=== PATIENT | male | born 1985 | race African-American/Black ===

== ENCOUNTER 2019-04-28 19:57 | Emergency (ER) | payer SELFPAY ==
--- NOTE | ~2019-04-28 | XR_ITS ---
XR knee RT min 4V 04/28/2019 20:50 INDICATION: Right knee pain PROCEDURE: 4 views right knee COMPARISON: No prior studies for comparison. FINDINGS: Fracture, dislocation or subluxation is not identified. No significant joint effusion. The soft tissues appear within normal limits. No foreign bodies are identified. IMPRESSION: 1: NO ACUTE BONE OR JOINT ABNORMALITY IDENTIFIED. Reviewed, dictated and finalized at location A. F METER READER
--- NOTE | ~2019-04-28 | XR_ITS ---
XR ankle RT min 3V 04/28/2019 20:50 Indication: Right lateral ankle pain Procedure: 4 views right ankle Comparison: No prior studies for comparison. Findings: There are is a healed distal fibular fracture. Ankle mortise intact. No acute fracture or t raumatic malalignment. There is a small ossific density adjacent to the medial malleolus, consistent with age-indeterminate avulsion fracture. Impression: 1: Age-indeterminate avulsion fracture medial malleolus. Correlate for point tenderness. Reviewed, dictated and finalized at location A. R SCHOOL PROGRAM TEACHER Impression: 1: Age-indeterminate avulsion fracture medial malleolus. Correlate for point te nderness.
[2019-04-28 20:00] VITALS: BP 175/121; PULSE 99; RESP 16; TEMP 37.1; O2SAT 96
--- NOTE | 2019-04-28 20:32 | PC.NURSE ---
pt requests to not be placed in gown, states he can pull his pant leg up.
--- NOTE | 2019-04-28 20:42 | ED.EXTPRO ---
HPI - Extremity Problem General Chief complaint: Extremity Problem,Nontraumatic Stated complaint: R knee pain Time Seen by Provider: 04/28/19 20:42 Source: patient Mode of arrival: ambulatory Limitations: no limitations History of Present Illness HPI Narrative: The pt is a 33 y/o male who presents to the ED with c/o intermittent rt ankle pain that began 4 years ago. The pt states that he injured his ankle many years ago and has not seen a doctor about it since right after it happened. He notes that his rt ankle looks different than his lt. His pain is alleviated with rest and aggravated with standing for long periods of time. The pt also report rt knee pain that began 1.5 weeks ago but denies thigh pain or any recent injury. The pt used to live in [place], which is where he saw an ED physician about his ankle 4 years ago, but is now staying here with his brother. He has no medical problems, smokes cigarettes, and rinks occassionally. MD Complaint: other (Ankle pain) Onset (ago): year(s) (4) Pain Consistency: intermittent Associated symptoms: other (rt knee pain) Related Data Allergies Allergy/AdvReac Type Severity Reaction Status Date / Time No Known Allergies Allergy Verified 04/28/19 20:23 Review of Systems Review of Systems: All systems reviewed & are unremarkable except as noted in HPI and below Musculoskeletal: Musculoskeletal: Reports arthralgias (rt knee pain, rt ankle pain) and Denies other (leg pain) PMFSH Past Medical History Medical History (Updated 04/28/19 @ 20:56 by Nurys Willard MD) Healthy adult male Surgical History Surgical History (Updated 04/28/19 @ 20:50 by Barby Donovan) No pertinent past surgical history Social History Social History (Updated 04/28/19 @ 20:50 by Barby Donovan) Smoking status: Current every day smoker Alcohol intake: current Exam Narrative: Exam Narrative: General appearance: Well-developed, well-nourished Skin: Normal color Head: Normocephalic, nontraumatic Eyes: Clear conjunctiva ENT: Oropharynx normal, ears normal, nose normal Neck: Supple, nontender Chest and respiratory: Airway patent, no respiratory distress, no accessory muscle use Heart: Regular rate/rhythm Vascular: Normal peripheral pulses, normal capillary refill. Musculoskeletal: Normal range of motion, nontender back, right ankle showed slight swelling lateral malleolus, no tenderness, no swelling, no deformity, no warmth, no rash Neurologic: Alert and oriented ?3, DIRECTOR FIELD SERVICES is normal as tested, no gross motor deficit Course Course Emergency Course: Unchanged Right ankle x-ray showed indeterminate avulsion fraction of the medial malleolus, on physical exam patient showed no tenderness, deformity or even limitation of range of motion. The x-ray result high likely secondary to old avulsion fracture 4 years ago. Vital Signs Vital signs: Vital Signs Temperature 37.1 C 04/28/19 20:00 Pulse Rate 99 04/28/19 20:00 Respiratory Rate 16 04/28/19 20:00 Blood Pressure 175/121 H 04/28/19 20:00 Pulse Oximetry 96 04/28/19 20:00 Temperature 37.1 C 04/28/19 20:00 Pulse Rate 99 04/28/19 20:00 Respiratory Rate 16 04/28/19 20:00 Blood Pressure 175/121 H 04/28/19 20:00 Pulse Oximetry 96 04/28/19 20:00 MDM - Extremity (Nontraumatic) MDM Narrative Medical decision making narrative: Patient presents with right ankle pain for the last 4 years, intermittent, does not have a shop, visiting his brother from another state for the last 4 weeks. Scheduled to work tomorrow, asking for a work excuse tomorrow. Imaging Data Radiologist's impression: ITS Impressions Knee X-Ray 04/28/19 20:51
== END 2019-04-28 21:32 | disposition home or self-care (01) ==
PROVIDERS: Emergency Provider Emergency Medicine
DX: M25.571 Pain in right ankle and joints of right foot (principal); F17.200 Nicotine dependence, unspecified, uncomplicated
CPT/HCPCS: 73564; 73610; 99284

== ENCOUNTER 2019-06-01 07:38 | Emergency (ER) | payer SELFPAY ==
[2019-06-01] VITALS (7 sets, daily range): BP systolic 145–169; BP diastolic 76–99; PULSE 71–84; RESP 14–22; TEMP 36.5–36.8; O2SAT 97–100
--- NOTE | ~2019-06-01 | XR_ITS ---
EXAMINATION: XR chest 2V DATE: 06/01/2019 08:28 INDICATION: Chest pain and bilateral neck and arm pain. TECHNIQUE: PA and lateral views of the chest were obtained. COMPARISON: None FINDINGS: The lungs are clear with no focal airspace opacities, pulmonary edema, pleural effusion or pneumothor ax. The cardiomediastinal silhouette is normal. Likely chronic posterior right ninth rib fracture. IMPRESSION: 1. No acute cardiopulmonary disease. Reviewed, dictated and finalized at location A. RNAL SALES ENGINEER
--- NOTE | 2019-06-01 07:48 | ECG_ITS ---
Measurements Intervals [place] Rate: 78 P: 51 [place]: 168 QRS: 14 QRSD: 100 T: 48 QT: 395 QTc: 453 Interpretive Statements SINUS RHYTHM NORMAL ECG Electronically Signed On 06-01-2019 8:51:44 LOGGING TRACTOR OPERATOR by Harvinder Bean D.O.
[2019-06-01 08:09] LABS: Basophils Percent Auto 0.4 % (0.2-1.2); Eosinophils Percent Auto 0.6 % (0-4.4); Hematocrit 43.7 % (42.0-52.0); Hemoglobin 14.2 g/dL (14.0-18.0); Immature Granulocyte Absolute 0.02 K/mm3 (0.00-0.031); Immature Granulocyte Percent A 0.3 % (0-0.5); Lymphocytes Absolute Auto 1.72 K/mm3 (0.9-3.2); Lymphocytes Percent Auto 23.7 % (18.3-44.2); Mean Corpuscular HGB Conc 32.5 g/dl (32-36); Mean Corpuscular Hemoglobin 29.2 pg (26-34); Mean Corpuscular Volume 89.9 fl (80-100); Monocytes Absolute Auto 0.8 K/mm3 (0.1-0.6); Monocytes Percent Auto 10.3 % (2.6-8.5); Neutrophils Absolute Auto 4.7 K/mm3 (1.3-6.7); Neutrophils Percent Auto 64.7 % (45.5-73.1); Platelet Count Result 281 k/mm3 (150-375); Red Blood Count 4.86 M/mm3 (4.6-6.20); Red Cell Distribution Width 12.5 % (11.5-14.5); White Blood Count 7.3 K/mm3 (4.5-10.0)
[2019-06-01 08:21] LABS: Prothrombin Time 12.6 Seconds (11.1-14.7)
[2019-06-01 08:22] LABS: Partial Thromboplastin Time 30.3 SECONDS (22.3-36.8)
[2019-06-01 08:24] LABS: Blood Urea Nitrogen 15 mg/dL (9-20); Calcium 8.8 mg/dL (8.4-10.2); Carbon Dioxide 24 mmol/L (22-30); Chloride 102 mmol/L (98-107); Estimated CRCL calculation 180 ml/min; Estimated Glomerular Filt Rate > 60; Glucose 93 mg/dL (75-110); Potassium 3.5 mmol/L (3.4-5.0); Sodium 136 mmol/L (137-145)
[2019-06-01 08:36] LABS: Troponin I < 0.012 ng/mL (0.000-0.034)
--- NOTE | 2019-06-01 08:46 | ED.CHESTPAIN ---
HPI - Chest Pain General Chief Complaint: Chest Pain <Henry Pratt PA-C - Last Filed: 06/01/19 11:42> Stated Complaint: neck pain <Henry Pratt PA-C - Last Filed: 06/01/19 11:42> Time Seen by Provider: 06/01/19 08:03 <RAPHAEL Kwok Last Filed: 06/01/19 11:42> Source: patient <Henry Pratt PA-C - Last Filed: 06/01/19 11:42> Mode of arrival: ambulatory <Henry Pratt PA-C - Last Filed: 06/01/19 11:42> Limitations: no limitations <Henry Pratt PA-C - Last Filed: 06/01/19 11:42> History of Present Illness HPI narrative: Patient is a 33-year-old male who presents to emergency department for evaluation of upper respiratory symptoms that have been present now for the last several days with nonproductive cough patient notes on Friday he had an episode of pain radiating from the head down into the chest patient has persistent chest discomfort since which is midsternal worse with coughing. Patient denies dyspnea shortness of breath lightheadedness dizziness or other complaints and is otherwise resting comfortably in the room upon arrival and does not take anything for his symptoms <Henry Pratt PA-C - Last Filed: 06/01/19 11:42> Related Data Allergies/Adverse Reactions: Allergies Allergy/AdvReac Type Severity Reaction Status Date / Time No Known Allergies Allergy Verified 04/28/19 20:23 <Henry Pratt PA-C - Last Filed: 06/01/19 11:42> Review of Systems Review of Systems: All systems reviewed & are unremarkable except as noted in HPI and below <Henry Pratt PA-C - Last Filed: 06/01/19 11:42> [facility] Past Medical History Medical History: Medical History Healthy adult male <RAPHAEL Kwok Last Filed: 06/01/19 11:42> Surgical History Surgical History: Surgical History No pertinent past surgical history <RAPHAEL Kwok Last Filed: 06/01/19 11:42> Social History Social History: Social History Smoking status: Current every day smoker Alcohol intake: current Gender identity (if verbalized by the patient): Male <Henry Pratt PA-C - Last Filed: 06/01/19 11:42> Exam Narrative: Exam Narrative: GENERAL: Well-appearing, well-nourished, and in no acute distress. HEAD: Normocephalic, atraumatic. EYES: PERRLA and EOMI. ENT: Nares clear, no rhinorrhea or epistaxis. Mucous membranes moist. CHEST: Clear to auscultation. No respiratory distress. No wheezes rales or rhonchi HEART: Regular rate and rhythm. No murmur heard. Normal peripheral pulses. ABDOMEN: Soft, nontender, nondistended EXTREMITIES: Normal range of motion. No edema. SKIN: Warm, dry, no rash. NEURO: No focal deficits. Alert and oriented x3. PSYCH: Normal mood and affect. <Henry Pratt PA-C - Last Filed: 06/01/19 11:42> Course Course Emergency Course: Patient in the room aware of case findings treatment plan and diagnosis agreeing to follow-up as directed or to return if symptoms worsen or concerns <Henry Pratt PA-C - Last Filed: 06/01/19 11:42> Vital Signs Vital signs: Vital Signs Temperature 36.8 C 06/01/19 07:41 Pulse Rate 78 06/01/19 07:41 Respiratory Rate 22 H 06/01/19 07:41 Blood Pressure 168/95 H 06/01/19 07:41 Pulse Oximetry 100 06/01/19 07:41 Temperature 36.5 C 06/01/19 11:30 Pulse Rate 76 06/01/19 11:54 Respiratory Rate 20 06/01/19 11:54 Blood Pressure 145/76 H 06/01/19 11:54 Pulse Oximetry 100 06/01/19 11:54 <Henry Pratt PA-C - Last Filed: 06/01/19 11:42> Vital Signs Temperature 36.8 C 06/01/19 07:41 Pulse Rate 78 06/01/19 07:41 Respiratory Rate 22 H 06/01/19 07:41 Blood Pressure 168/95 H 06/01/19 07:41 Pulse Oximetry 100 06/01/19 07:41 Temperatur
[2019-06-01 11:36] LABS: Troponin I < 0.012 ng/mL (0.000-0.034)
== END 2019-06-01 11:56 | disposition home or self-care (01) ==
PROVIDERS: Emergency Provider Emergency Medicine
DX: R07.9 Chest pain, unspecified (principal)
CPT/HCPCS: 36415; 71046; 80048; 84484; 85025; 85610; 85730; 93005; 99284

== ENCOUNTER 2019-09-21 04:30 | Emergency (ER) | payer SELFPAY ==
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
--- NOTE | ~2019-09-21 | XR_ITS ---
EXAMINATION: XR chest 1V portable DATE: 09/21/2019 05:08 INDICATION: Generalized chest pain TECHNIQUE: frontal view of the chest was obtained. COMPARISON: Chest radiograph dated 06/01/19 FINDINGS: The lungs remain clear with no focal airspace opacities, pulmonary edema, pleural effusion or pneumot horax. The cardiomediastinal silhouette is normal. Visualized bones and soft tissues are unremarkable . IMPRESSION: 1. No acute cardiopulmonary disease. Reviewed, dictated and finalized at location A.
[2019-09-21 04:45] VITALS: BP 124/80; PULSE 72; RESP 16; TEMP 36.8; O2SAT 96
[2019-09-21 05:00] LABS: Basophils Percent Auto 0.3 % (0.2-1.2); Hematocrit 41.7 % (42.0-52.0); Hemoglobin 13.5 g/dL (14.0-18.0); Immature Granulocyte Absolute 0.04 K/mm3 (0.00-0.031); Immature Granulocyte Percent A 0.6 % (0-0.5); Lymphocytes Percent Auto 18.2 % (18.3-44.2); Mean Corpuscular HGB Conc 32.4 g/dl (32-36); Mean Corpuscular Hemoglobin 29.5 pg (26-34); Mean Platelet Volume 8.9 fl (7.4-10.4); Monocytes Absolute Auto 0.5 K/mm3 (0.1-0.6); Monocytes Percent Auto 7.1 % (2.6-8.5); Neutrophils Absolute Auto 5.3 K/mm3 (1.3-6.7); Neutrophils Percent Auto 73.8 % (45.5-73.1); Platelet Count Result 302 k/mm3 (150-375); Red Blood Count 4.58 M/mm3 (4.6-6.20); Red Cell Distribution Width 13.4 % (11.5-14.5); White Blood Count 7.2 K/mm3 (4.5-10.0)
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
[2019-09-21 05:13] LABS: Blood Urea Nitrogen 16 mg/dL (9-20); Calcium 8.6 mg/dL (8.4-10.2); Carbon Dioxide 21 mmol/L (22-30); Chloride 111 mmol/L (98-107); Estimated CRCL calculation 112 ml/min; Estimated Glomerular Filt Rate > 60; Ethanol 151 mg/dL (<10); Glucose 132 mg/dL (75-110); Potassium 3.8 mmol/L (3.4-5.0); Sodium 142 mmol/L (137-145)
--- NOTE | 2019-09-21 05:15 | ECG_ITS ---
Measurements Intervals [place] Rate: 116 P: 65 TN: 174 QRS: 21 QRSD: 93 T: 59 QT: 331 QTc: 460 Interpretive Statements SINUS TACHYCARDIA ABNORMAL ECG Electronically Signed On 09-21-2019 6:54:53 CDT by Harvinder Bean D.O.
[2019-09-21 05:25] LABS: Troponin I 0.013 ng/mL (0.000-0.034)
[2019-09-21 06:54] VITALS: BP 145/89; PULSE 86; RESP 16; TEMP 36.9; O2SAT 98
== END 2019-09-21 06:54 | disposition home or self-care (01) ==
PROVIDERS: Emergency Provider Emergency Medicine
DX: R07.89 Other chest pain (principal); F10.129 Alcohol abuse with intoxication, unspecified; Y90.6 Blood alcohol level of 120-199 mg/100 ml; R00.0 Tachycardia, unspecified; F17.210 Nicotine dependence, cigarettes, uncomplicated
CPT/HCPCS: 36415; 70450; 71045; 80048; 80307; 84484; 85025; 93005; 99284

== ENCOUNTER 2019-12-19 20:19 | Emergency (ER) | payer SELFPAY ==
[2019-12-19 20:22] VITALS: BP 171/114; PULSE 97; RESP 16; TEMP 36.2; O2SAT 100
[2019-12-19 20:55] VITALS: BP 164/109; PULSE 90
[2019-12-19 20:57] VITALS: BP 165/122; PULSE 102
[2019-12-19 20:59] VITALS: BP 171/126; PULSE 108
[2019-12-19 21:06] LABS: Basophils Percent Auto 0.4 % (0.2-1.2); Eosinophils Percent Auto 0.3 % (0-4.4); Hematocrit 45.7 % (42.0-52.0); Hemoglobin 15.3 g/dL (14.0-18.0); Immature Granulocyte Absolute 0.02 K/mm3 (0.00-0.031); Immature Granulocyte Percent A 0.3 % (0-0.5); Lymphocytes Absolute Auto 1.92 K/mm3 (0.9-3.2); Lymphocytes Percent Auto 26.9 % (18.3-44.2); Mean Corpuscular HGB Conc 33.5 g/dl (32-36); Mean Corpuscular Volume 92.5 fl (80-100); Mean Platelet Volume 9.3 fl (7.4-10.4); Monocytes Absolute Auto 0.8 K/mm3 (0.1-0.6); Monocytes Percent Auto 10.8 % (2.6-8.5); Neutrophils Absolute Auto 4.4 K/mm3 (1.3-6.7); Neutrophils Percent Auto 61.3 % (45.5-73.1); Platelet Count Result 360 k/mm3 (150-375); Red Blood Count 4.94 M/mm3 (4.6-6.20); Red Cell Distribution Width 11.9 % (11.5-14.5); White Blood Count 7.1 K/mm3 (4.5-10.0)
[2019-12-19 21:09] LABS: Add Urine Microscopic? YES; Appearance Urine Clear (Clear); Bilirubin Urine Negative (Negative); Blood Urine Negative (Negative); Color Urine Yellow (Yellow); Glucose Urine UA Negative (Negative); Ketones Urine Negative (Negative); Leukocyte Esterase Ur Negative LEU/UL (Negative); Mucus Urine Rare /lpf; Nitrate Urine Negative (Negative); Protein Urine Negative (Negative); RBC Urine 0-2 /hpf (0-2); Specific Grav Ur 1.013 (1.001-1.035); Squamous Epithelial Cell Urine Rare /hpf (Few); WBC Urine 0-3 /hpf
--- NOTE | 2019-12-19 21:12 | ED.NAVMDI ---
HPI - Nausea/Vomiting/Diarrhea General Chief complaint: Nausea/Vomiting/Diarrhea Stated complaint: diarrhea Time Seen by Provider: 12/19/19 20:44 Source: patient Mode of arrival: ambulatory Limitations: no limitations History of Present Illness HPI Narrative: This patient is a 34 year old male who presents for evaluation of diarrhea. He states he started having diarrhea on . He describes his stool as loose and brown, and he denies bloody diarrhea. He states on he felt weak but that resolved. He has continued to have some diarrhea , and he states his stools are starting to be more solid. He was unable to find a ride on , so he came today to get evaluated. HE denies associated nausea, vomiting, fever, or abdominal pain. He denies sore throat, cough runny nose, headache or dizziness. He also denies previous antibiotic use. MD elicited complaint: diarrhea Onset (ago): day(s) Description of vomiting: none Description of diarrhea: lose Associated nausea: No Associated abdominal pain: No Location of pain: none Exacerbating factors: none Relieving factors: none Related Data Allergies Allergy/AdvReac Type Severity Reaction Status Date / Time No Known Allergies Allergy Verified 12/19/19 20:25 Review of Systems Review of Systems: All systems reviewed & are unremarkable except as noted in HPI and below Constitutional: Constitutional: Denies chills and Denies fever(s) ENT: Denies nasal congestion and Denies sore throat Cardiovascular: Cardiovascular: Denies chest pain Respiratory: Respiratory: Denies cough and Denies dyspnea Gastrointestinal: Gastrointestinal: Denies abdominal pain, Reports diarrhea, Denies nausea and Denies vomiting PMFSH Social History Social History Smoking status: Current every day smoker Alcohol intake: current Gender identity (if verbalized by the patient): Male Exam Narrative: Exam Narrative: GENERAL: Well-appearing, well-nourished, and in no acute distress. HEAD: Normocephalic, atraumatic EYES: PERRLA and EOMI, conjunctiva clear without discharge THROAT:Mucous membranes moist, Oropharynx normal without erythema, exudate, peritonsillar swelling or fluctuance NECK: Supple, without lymphadenopathy or mass RESPIRATORY: No respiratory distress, Airway patent, Respirations non-labored, Clear to auscultation without rales, rhonchi or wheeze HEART: Regular rate and rhythm. No murmur heard. Normal peripheral pulses. ABDOMEN: Soft, nontender, nondistended, normal active bowel sounds. No masses. No rebound or guarding, No organomegaly. EXTREMITIES: No edema, normal strength with full range of motion. SKIN: Warm, dry, normal color without rash NEURO: Alert and oriented x3. CN 2-12 grossly intact. No focal deficits. PSYCH: Normal mood and affect. Course Reevaluation(s) Reevaluation #1: Patient has no complaints. I discussed labs are normal. I also discussed that he is hypertensive today and on review of his chart it has been elevated on other visits. I recommended that he follow up with PCP for evaluation of hypertension. He has not further complaints or concerns. Date: 12/19/19 Time: 21:59 Vital Signs Vital signs: Vital Signs Temperature 97.2 F L 12/19/19 20:22 Pulse Rate 97 12/19/19 20:22 Respiratory Rate 16 12/19/19 20:22 Blood Pressure 171/114 H 12/19/19 20:22 Pulse Oximetry 100 12/19/19 20:22 Temperature 97.2 F L 12/19/19 20:22 Pulse Rate 94 12/19/19 22:21 Respiratory Rate 18 12/19/19 22:21 Blood Pressure 163/105 H 12/19/19 22:21 Pulse Oximetry 98 12/19/19 22:21 MDM - Nausea/Vomiting/Diarrhea Lab Data Result diagrams: 12/19/19 20:57 12/19/19 20:57 Labs: Lab Results 12/19/19 12/19/19 12/19/19 Range/Units 20:57 20:57 20:57 WBC 7.1 (4.5-10.0) K/mm3 RBC 4.94 (4.6-6.20) M/mm3 Hgb 15.3 (14.0-18.0) g/dL Hct
[2019-12-19 21:19] LABS: Alanine Aminotransferase 24 U/L (4-50); Albumin Level 4.6 g/dL (3.5-5.1); Alkaline Phosphatase 69 U/L (38-126); Anion Gap 10 mmol/L (8-16); Aspartate Amino Transferase 30 U/L (17-59); Bilirubin,Total 0.9 mg/dL (0.2-1.3); Blood Urea Nitrogen 11 mg/dL (9-20); Calcium 9.4 mg/dL (8.4-10.2); Carbon Dioxide 23 mmol/L (22-30); Chloride 103 mmol/L (98-107); Estimated CRCL calculation 153 ml/min; Estimated Glomerular Filt Rate > 60; Glucose 99 mg/dL (75-110); Lipase 157 U/L (23-300); Potassium 3.5 mmol/L (3.4-5.0); Sodium 136 mmol/L (137-145)
[2019-12-19 22:21] VITALS: BP 163/105; PULSE 94; RESP 18; O2SAT 98
== END 2019-12-19 22:22 | disposition home or self-care (01) ==
PROVIDERS: Emergency Provider General Practice
DX: R19.7 Diarrhea, unspecified (principal); R03.0 Elevated blood-pressure reading, without diagnosis of hypertension; F17.200 Nicotine dependence, unspecified, uncomplicated
CPT/HCPCS: 36415; 80053; 81001; 83690; 85025; 99283

== ENCOUNTER 2020-05-22 09:50 | Emergency (ER) | payer SELFPAY ==
[2020-05-22 09:51] VITALS: BP 157/131; PULSE 104; RESP 18; TEMP 35.4; O2SAT 96
--- NOTE | 2020-05-22 10:20 | ED.DENTAL ---
HPI - Dental/Oral General Chief complaint: Dental/Oral Stated complaint: Tooth Pain, Left Side Time Seen by Provider: 05/22/20 10:02 Source: patient Mode of arrival: ambulatory Limitations: no limitations History of Present Illness HPI Narrative: Patient is a 34-year-old male who presents to emergency department for evaluation of dental pain for the last several days history of decay patient notes pain to the lower posterior molar. Patient has tried [id number] medications with minimal improvement. Patient denies any fever chills nausea vomiting weakness or other complaints does not have a dentistry follow-up Teeth map: 1. decayed molar adjacent to decayed impacted wisdom tooth Related Data Allergies Allergy/AdvReac Type Severity Reaction Status Date / Time No Known Allergies Allergy Verified 05/22/20 10:06 Review of Systems Review of Systems: All systems reviewed & are unremarkable except as noted in HPI and below PMFSH Past Medical History Medical History (Updated 05/22/20 @ 10:24 by Henry Pratt PA-C) Healthy adult male Surgical History Surgical History History of appendectomy No pertinent past surgical history Social History Social History Smoking status: Current every day smoker Alcohol intake: current Gender identity (if verbalized by the patient): Male Exam Narrative: Exam Narrative: GENERAL: Well-appearing, well-nourished, and in no acute distress. HEAD: Normocephalic, atraumatic. EYES: PERRLA and EOMI. ENT: Nares clear, no rhinorrhea or epistaxis. Mucous membranes moist. Patient with decayed lower posterior molar adjacent to an impacted decayed wisdom tooth slight erythema no involvement of the surrounding tissues no drainage uvula is midline there is no trismus or drooling NECK: Supple. No adenopathy or masses. CHEST: Clear to auscultation. No respiratory distress. No wheezes rales or rhonchi HEART: Regular rate and rhythm. No murmur heard. SKIN: Warm, dry, no rash. NEURO: No focal deficits. Alert and oriented x3. PSYCH: Normal mood and affect. Course Course Emergency Course: Patient will be treated for dental infection referred to dentistry for follow-up and primary care felt appropriate for outpatient reevaluation given reasons to return Vital Signs Vital signs: Vital Signs Temperature 95.7 F L 05/22/20 09:51 Pulse Rate 104 H 05/22/20 09:51 Respiratory Rate 18 05/22/20 09:51 Blood Pressure 157/131 H 05/22/20 09:51 Pulse Oximetry 96 05/22/20 09:51 Temperature 95.7 F L 05/22/20 09:51 Pulse Rate 104 H 05/22/20 09:51 Respiratory Rate 18 05/22/20 09:51 Blood Pressure 157/131 H 05/22/20 09:51 Pulse Oximetry 96 05/22/20 09:51 MDM - Dental/Oral MDM Narrative Medical decision making narrative: Patients pain and complaint coupled with physical findings are consistent with dentalgia. There are no focal signs of space occupying lesions that are compromising to the airway. The floor of the mouth is soft with no signs of Tommy Angina. Patient is without trismus or drooling and able to swallow secretions. Patient is felt appropriate for discharge home with dental follow up. Discharge Plan Discharge Clinical Impression: Dental abscess Patient Disposition: Home, Self-Care Condition: Stable Instructions: Antibiotic Form, Dental Abscess (ED) Additional Instructions: Follow up with your primary care provider and dentistry within 1-2 days to set up for reevaluation. Go to ER for shortness of breath, difficulty breathing, chest pain, fever/chills, weakness, nauseau/vomitting, unable to swallow or open the mouth etc. or any other concerns. Stay well-hydrated Take any prescribed medications as directed. Follow patient education sheets If you do not have a drug allergy to tylenol or motrin and can tolerate it then take tylenol
[2020-05-22 10:42] VITALS: BP 138/98; PULSE 100; RESP 12; O2SAT 99
== END 2020-05-22 10:43 | disposition home or self-care (01) ==
PROVIDERS: Emergency Provider Emergency Medicine; Referring Provider Emergency Medicine
DX: K04.7 Periapical abscess without sinus (principal); F17.200 Nicotine dependence, unspecified, uncomplicated
CPT/HCPCS: 99283